=== PATIENT | female | born 1965 | race Caucasian/White ===

== ENCOUNTER 2023-02-25 12:02 | Emergency (ER) | payer BC ==
[~2023-02-25] VITALS: Ht 160 cm; Wt 77.1 kg
[2023-02-25 12:08] VITALS: BP 164/90; PULSE 108; RESP 20; TEMP 98.8; O2SAT 98
[2023-02-25] MEDS ORDERED: IBUP-2213 PO (12:44)
[2023-02-25] MEDS ORDERED: ACET-8905 PO (12:44)
[2023-02-25] MEDS ORDERED: ACET-10509 PO (12:44)
[2023-02-25] MEDS ORDERED: HYDROcodone/APAP 5/325 MG 1 TAB TAB PO ONE (12:50)
[2023-02-25 13:26] VITALS: BP 164/90; PULSE 108; RESP 20; TEMP 98.8; O2SAT 98
== END 2023-02-25 14:57 | disposition home or self-care (01) ==
LOC: MED 12:02
DX: M79.604 Pain in right leg (principal); Z79.899 Other long term (current) drug therapy; Z79.1 Long term (current) use of non-steroidal anti-inflammatories (NSAID)
CPT/HCPCS: 99283